=== PATIENT | male | born 1985 | race Caucasian/White ===

== ENCOUNTER → 2017-03-24 | Outpatient (CLI) | payer OTHER ==
[~2017-03-24] MED LIST: CALCIUM; DOXYCYCLINE HY100 M2 PO; FLUDROCORTISON0.1 MG PO; IBUPROFEN800 MG PO; MILLIPRED5 MG PO; NORCO 5-325 TA1 EACH PO
== END ==
LOC: OPSV 10:48
DX: E83.119 Hemochromatosis, unspecified (principal)
CPT/HCPCS: 80076; 82728; 83540; 83550; 85018

== ENCOUNTER 2017-04-08 17:19 | Inpatient (IN) | payer OTHER ==
[~2017-04-08] VITALS: Ht 167.6 cm; Wt 129.3 kg
[2017-04-08 17:48] LABS: HEMOGLOBIN 16.4 gm/dl (14.0-17.5); RED BLOOD COUNT 5.19 M/UL (4.20-5.50); WHITE BLOOD COUNT 10.7 K/UL (4.5-11.0)
[2017-04-08 18:06] LABS: BUN/CREATININE RATIO 27 (0-10)
[2017-04-08] MEDS ORDERED: MILLIPRED5 MG PO ×2 (21:36→21:37)
[2017-04-08] MEDS ORDERED: FLUDROCORTISON0.1 MG PO (21:38)
[2017-04-08] MEDS ORDERED: CALCIUM (21:49)
[2017-04-09 04:58] LABS: HEMOGLOBIN 15.1 gm/dl (14.0-17.5); RED BLOOD COUNT 4.86 M/UL (4.20-5.50); WHITE BLOOD COUNT 10.6 K/UL (4.5-11.0)
[2017-04-09 05:19] LABS: BUN/CREATININE RATIO 19 (0-10)
--- NOTE | 2017-04-09 18:30 | NUR ---
CURRENTLY PATIENT IS RESTING IN BED WITH FAMILY AT BEDSIDE. NO COMPLAINT OF PAIN. IV PATENT WITH FLUIDS RUNNING. CALL LIGHT WITH IN REACH. WILL CONTINUE TO MONITOR.
[2017-04-10 07:23] LABS: HEMOGLOBIN 15.6 gm/dl (14.0-17.5)
[2017-04-10 07:32] LABS: WHITE BLOOD COUNT 7.6 K/UL (4.5-11.0)
[2017-04-10 07:44] LABS: BUN/CREATININE RATIO 21 (0-10)
[2017-04-11 05:58] LABS: HEMOGLOBIN 14.5 gm/dl (14.0-17.5); RED BLOOD COUNT 4.72 M/UL (4.20-5.50); WHITE BLOOD COUNT 8.6 K/UL (4.5-11.0)
[2017-04-11 06:16] LABS: BUN/CREATININE RATIO 19 (0-10)
--- NOTE | 2017-04-11 17:57 | NUR ---
PATIENT HAD HIS PROCEDURE TODAY. DRESSING CLEAN/DRY/INTACT. WILL CONTINUE TO MONITOR.
[2017-04-12] MEDS ORDERED: IBUPROFEN800 MG PO (18:51)
[2017-04-12] MEDS ORDERED: DOXYCYCLINE HY100 M2 PO (18:51)
[2017-04-12] MEDS ORDERED: NORCO 5-325 TA1 EACH PO (18:52)
== END 2017-04-12 20:05 | disposition home or self-care (01) | DRG 580 ==
LOC: ER1 17:19 → ZEROF 18:40 → MED SURG 4 18:40
PROVIDERS: Emergency Medicine; Internal Medicine; Surgery; ADMIT Internal Medicine
PROC: 0J980ZZ Drainage of Abdomen Subcutaneous Tissue and Fascia, Open Approach (ICD-10-PCS; principal; 2017-04-11 15:15)
DX: L02.211 Cutaneous abscess of abdominal wall (principal); R17 Unspecified jaundice; Z68.42 Body mass index [BMI] 45.0-49.9, adult; L03.311 Cellulitis of abdominal wall; B95.61 Methicillin susceptible Staphylococcus aureus infection as the cause of diseases classified elsewhere; E25.0 Congenital adrenogenital disorders associated with enzyme deficiency; F17.220 Nicotine dependence, chewing tobacco, uncomplicated; E66.01 Morbid (severe) obesity due to excess calories; Z79.52 Long term (current) use of systemic steroids; Z79.899 Other long term (current) drug therapy; Z80.1 Family history of malignant neoplasm of trachea, bronchus and lung
CPT/HCPCS: 36415; 80048; 80053; 80202; 83735; 84100; 85025; 85027; 86140; 87040; 87070; 87077; 87186; 87205; 96365; 96366; 99284; J1335; J1650; J2250; J2270; J3010; J3370; J7030; J7050; J7070; J7120

== ENCOUNTER → 2021-05-28 | Outpatient (CLI) | payer BC ==
[2021-05-28 09:55] LABS: HEMOGLOBIN 16.6 gm/dl (14.0-17.5)
== END ==
LOC: OPSV 09:00
PROVIDERS: Internal Medicine Gastroenterology
DX: E83.110 Hereditary hemochromatosis (principal)
CPT/HCPCS: 36415; 80076; 82728; 83540; 83550; 85014; 85018; 99195

== ENCOUNTER → 2021-12-01 | Outpatient (CLI) | payer BC | LOC: OPSV 08:00 | DX: E83.110 Hereditary hemochromatosis (principal) | CPT/HCPCS: 36415; 82728; 85018; 99195 ==

== ENCOUNTER → 2022-06-03 | Outpatient (CLI) | payer BC | LOC: OPSV 11:31 | DX: E83.110 Hereditary hemochromatosis (principal) | CPT/HCPCS: 36415; 82728; 85018; 99195 ==